=== PATIENT | female | born 1990 | race Caucasian/White ===

== ENCOUNTER 2017-08-17 15:42 | Emergency (ER) | payer OTHER ==
[~2017-08-17] VITALS: Ht 160 cm; Wt 50.8 kg
== END 2017-08-17 19:23 | disposition home or self-care (01) ==
LOC: ER 15:42
DX: E16.1 Other hypoglycemia (principal); E86.0 Dehydration; R51 Headache

== ENCOUNTER → 2018-01-30 | Emergency (ER) | payer OTHER ==
[~2018-01-30] VITALS: Ht 160 cm; Wt 52.2 kg
[~2018-01-30] MED LIST: KETO10TA2 PO; ORPHENADRINE C100 MG PO
== END | disposition home or self-care (01) ==
LOC: ER 18:06
DX: S00.83XA Contusion of other part of head, initial encounter (principal); M62.838 Other muscle spasm; V49.9XXA Car occupant (driver) (passenger) injured in unspecified traffic accident, initial encounter; Y93.89 Activity, other specified; Y92.488 Other paved roadways as the place of occurrence of the external cause; Y99.8 Other external cause status